=== PATIENT | male | born 1955 | race Hispanic/Latino ===

== ENCOUNTER 2017-01-13 02:27 | Emergency (ER) | payer MEDICARE ==
--- NOTE | 2017-01-13 05:02 | Emergency Department Report ---
ED Psych HPI - General Chief Complaint: Psych Stated Complaint: DT'S Time Seen by Provider: 01/13/17 03:31 Source: EMS Mode of arrival: Stretcher Limitations: No Limitations - History of Present Illness Initial Comments: 61-year-old male presents to the emergency department via EMS for psychiatric evaluation. Per report, patient was being transported from [facility] to [facility]. Patient is an involuntary commitment due to suicidal ideation and alcohol abuse. On arrival at [facility], the patient was noted to have a Dugan catheter with leg bag and needing a cane for ambulation. This information was apparently not reported to [facility] upon their initial acceptance. This information qualifiers the patient one of their special ambulatory beds, of which none were available. Instead of being transported back to his original hospital, EMS brought the patient to this facility. Patient is repeatedly asking for Ativan stating that he is going through DTs. There are no other complaints. MD Complaint: suicidal ideation -: unknown Associated Psychiatric Symptoms: suicidal ideation History of same: Yes Quality: constant Improves With: none Worsens With: none Context: recent alcohol abuse Associated Symptoms: denies other symptoms Treatments Prior to Arrival: placed on mental he - Related Data Allergies Allergy/AdvReac Type Severity Reaction Status Date / Time No Known Allergies Allergy Unverified 01/13/17 02:48 ED Review of Systems ROS: Stated complaint: DT'S Other details as noted in HPI Comment: All other systems reviewed and negative Psychiatric: suicidal thoughts ED Past Medical Hx - Past Medical History Previous Medical History?: Yes Hx Hypertension: Yes Hx GERD: Yes Hx Arthritis: Yes Hx COPD: Yes Additional medical history: Urinary retention - Surgical History Past Surgical History?: Yes Additional Surgical History: Hernia repair, pneumonectomy - Family History Family history: CAD/VT - Social History Smoking Status: Current Every Day Smoker Substance Use Type: Alcohol ED Physical Exam - General Limitations: No Limitations General appearance: alert, in no apparent distress - Head Head exam: Present: atraumatic, normocephalic - Eye Eye exam: Present: normal appearance, PERRL, EOMI - ENT ENT exam: Present: normal exam, normal orophraynx, mucous membranes moist - Neck Neck exam: Present: normal inspection, full ROM. Absent: tenderness - Respiratory Respiratory exam: Present: normal lung sounds bilaterally. Absent: respiratory distress - Cardiovascular Cardiovascular Exam: Present: regular rate, normal rhythm, normal heart sounds - GI/Abdominal GI/Abdominal exam: Present: soft, normal bowel sounds. Absent: distended, tenderness - exam: Present: other (indwelling Dugan catheter in place with leg bag.) - Extremities Exam Extremities exam: Present: normal inspection, full ROM. Absent: tenderness - Back Exam Back exam: Present: normal inspection, full ROM. Absent: tenderness - Neurological Exam Neurological exam: Present: alert, oriented X3. Absent: motor sensory deficit - Skin Skin exam: Present: warm, dry, intact ED Course Vital Signs 01/13/17 02:57 Pulse Rate 83 Respiratory 14 Rate Blood Pressure 121/77 [Left] O2 Sat by Pulse 99 Oximetry ED Medical Decision Making - EKG Data -: EKG Interpreted by Me EKG shows normal: sinus rhythm, intervals, QRS complexes, ST-T waves Rate: normal - EKG Data When compared to previous EKG there are: previous EKG unavailable Interpretation: other (left anterior fascicular block, no ischemic changes) - Medical Decision Making Patient has been medically cleared from the previous facility. I have spoken with our mental health counselor who is arranging transport back to the patient' s original facility. Patient is repeatedly asking for Ativan stating that he is going into DTs. He has a normal blood pressure and normal heart rate, which are consistent with acute alcohol withdrawal. Patient is awaiting transport. Critical care attestation.: If time is entered above; I have spent that time in minutes in the direct care of this critically ill patient, excluding procedure time. ED Disposition Clinical Impression: Suicidal ideation Disposition: [id number]/[id number] PSY HOSP/PSY UNIT Is pt being admited?: No Condition: Stable Referrals: PRIMARY MD JACKI [Primary Care Provider] - 3-5 Days Time of Disposition: 05:13
[2017-01-13 06:04] VITALS: BP 136/76
== END 2017-01-13 06:06 ==
LOC: ED 02:27
DX: R45.851 Suicidal ideations (principal); I10 Essential (primary) hypertension; K21.9 Gastro-esophageal reflux disease without esophagitis; J44.9 Chronic obstructive pulmonary disease, unspecified; F17.200 Nicotine dependence, unspecified, uncomplicated
CPT/HCPCS: 93005; 93010; 99284